=== PATIENT | male | born 1955 | race African-American/Black ===

== ENCOUNTER 2017-07-18 15:07 | Outpatient (CLI) | payer OTHER ==
--- NOTE | 2017-07-18 16:32 | RAD ---
TWO VIEWS OF THE LUMBOSACRAL SPINE: 07/18/17 COMPARISON: None. HISTORY: Followup. Lumbar disc disease status post lumbar surgery. FINDINGS: Two views of the lumbosacral spine shows the patient to be status post posterior fusion of L4 on L5 with left sided pedicle screws. No perihardware lucency is identified. A disc spacer is seen in good position within the disc space. The vertebral bodies demonstrate normal alignment without subluxati on. IMPRESSION: Postsurgical changes of the lumbar spine without evidence of complication. POS: [facility]
== END 2017-07-18 15:08 | disposition home or self-care (01) ==
LOC: TBSIIMAG 15:07
PROVIDERS: ATTEND Physician Assistant
DX: M51.9 Unspecified thoracic, thoracolumbar and lumbosacral intervertebral disc disorder (principal); Z98.1 Arthrodesis status
CPT/HCPCS: 72100

== ENCOUNTER 2020-01-24 18:24 | Inpatient (IN) | payer OTHER ==
[~2020-01-24 18:24] MED LIST: Dexamethasone 20 MG/5 ML VIAL ONE; Glycopyrrolate 0.2 MG/ML 5 ML SYRINGE ONE; Iopamidol-370 76% 500 ML 1 ML ONE; Lidocaine 1% PF 5 ML VIAL ONE; Ondansetron PF 4 MG/2 ML Vial ONE; PROPOFOL 200 MG/20 ML VIAL ONE; Rocuronium Bromide 10 MG/ML (10ML VIAL) ONE; Succinylcholine Chloride 20 MG/ML 10 ml SYRINGE FS ONE
[2020-01-24] MEDS ORDERED: Morphine 4 MG/ML VIAL ONE (18:52)
[2020-01-24] MEDS ORDERED: Ondansetron PF 4 MG/2 ML Vial ONE ×2 (18:52→18:54)
[2020-01-24 19:01] LABS: Hemoglobin 17.1 g/dL (14.0-18.0); Mean Corpuscular HGB CONC 33.2 g/dL (32.0-36.0); Mean Corpuscular Hemoglobin 30.5 pg (27.0-31.0); Mean Corpuscular Volume 91.7 fL (78.0-98.0); Mean Platelet Volume 9.5 fL (7.4-10.4); Platelet Count 243 thou/uL (130-400); RBC Distribution Width 11.9 % (11.5-14.5); Red Blood Cell (RBC) Count 5.61 mill/uL (4.70-6.10); White Blood Cell (WBC) Count 21.6 thou/uL (4.8-10.8)
[2020-01-24 19:06] LABS: PTT 24.4 SEC (22.9-36.1)
--- NOTE | 2020-01-24 19:17 | RAD ---
PORTABLE CHEST: History: Abdominal pain and diarrhea. FINDINGS: Heart size is within normal limits. Mediastinal structures appear unremarkable. Bibasilar atelectatic lung changes are seen. Findings are suspicious for free air under the right hemidiaphragm. CT is rec ommended. IMPRESSION: Findings suspicious for free air under the right hemidiaphragm. CT is recommended for further assessm ent. Findings telephoned to Dr. Georges. POS: [facility]
[2020-01-24 19:23] LABS: ALT (SGPT) 24 U/L (8-55); AST (SGOT) 19 U/L (5-34); Albumin 4.6 g/dL (3.4-4.8); Alkaline Phosphatase 77 U/L (40-110); Anion Gap 19 mmol/L (10-20); BUN (Urea Nitrogen) 11 mg/dL (8.4-25.7); CK (CPK) 163 U/L (30-200); Calc. Creatinine Clearance 0 mL/min (70-130); Carbon Dioxide 29 mmol/L (23-31); Chloride 94 mmol/L (98-107); Estimated GFR-MDRD 79; Globulin 3.5 g/dL (2.4-3.5); Glucose 286 mg/dL (80-115); Lipase 47 U/L (8-78); Protein, Total 8.1 g/dL (5.8-8.1); Sodium 138 mmol/L (136-145)
[2020-01-24 19:26] LABS: Band 19 % (5-11); Lymphocytes 4 % (21-51); MDiff Complete? YES; Metamyelocyte 2 % (0-0); Monocytes 9 % (0-10); Neutrophil 66 % (42-75); Platelet Morphology Comment Appears Adequate; RBC Morphology Normal; Vacuoles SLIGHT
[2020-01-24] MEDS ORDERED: Piperacillin/Tazobactam 4.5 GM VIAL ONE (20:02)
--- NOTE | 2020-01-24 20:16 | CT ---
CT ABDOMEN AND PELVIS PERFORMED WITH CONTRAST ENHANCEMENT: History: Abdominal pain, diarrhea. Free air noted on chest x-ray exam. FINDINGS: The lung bases show subsegmental atelectatic change. The liver shows no focal abnormalities. There is a small amount of air seen within the right lobe of the liver adjacent to a portal vein, not felt to be in the portal vein. It may represent a tiny amoun t of pneumobilia. It is not definitely felt to represent portal venous gas. The spleen is normal in a ppearance. The pancreas region appears unremarkable. The gallbladder is not distended. Free fluid is seen adjacent to the liver. In addition free air is seen along the right hemidiaphragm and anterior t o the liver. It is also anterior to the stomach. There is a somewhat edematous appearing change to po rtions of the wall of the stomach, particularly as progressed towards the antrum region. This free ai r is also adjacent to the transverse colon but I do not see any transverse colon wall thickening or a ny definite diverticular changes that would suggest a perforation related to diverticular disease. No pneumotosis of the colon wall. Abdominal aorta is normal in caliber. There is some minimal fat stran ding within the mesenteric fat. Free fluid is seen within the pelvis. The bladder wall appears slight ly thickened and is under distended, probably on the basis of mildly enlarged prostate. IMPRESSION: 1. Free air and fluid within the abdomen. I believe the most likely course of this is probably relate d to the stomach. Findings were discussed with Dr. Georges. 2. Other findings as noted above. POS: [facility] [place]
[2020-01-24] MEDS ORDERED: Lidocaine 2% Jelly 5 ML TUBE ONE (20:45)
[2020-01-24] MEDS ORDERED: Midazolam HCl 2 mg/2 ml Vial ONE (20:45)
[2020-01-24] MEDS ORDERED: Fentanyl 100 MCG/2 ML VIAL ONE (20:45)
--- NOTE | 2020-01-24 21:06 | HP ---
CHIEF COMPLAINT: Abdominal pain. PRESENT ILLNESS: Mr. Goodman is a 64-year-old man who had been troubled with constipation for several days and today, he had a rather acute onset of primarily upper abdominal pain, which continued to worsen throughout the day. He did not have any nausea or vomiting. He came to the emergency room and evaluation was done which included a CT scan of the abdomen which demonstrated pneumoperitoneum indicating a perforation of the bowel. He has never had any problems such as this in the past. PAST MEDICAL HISTORY: Significant for back surgery, foot surgery, history of sleep apnea with sinus surgery, borderline diabetes mellitus. He had scarlet fever last year. MEDICATIONS: None. ALLERGIES: NONE. FAMILY HISTORY: His father when he was a young child. His mother of colon cancer. SOCIAL HISTORY: He is . He is retired. He still smokes less than a pack cigarettes per day. Seldom consumes any alcoholic beverages. REVIEW OF SYSTEMS: Negative for any pulmonary problems such as asthma. No chest pains or heart trouble. Denies any hypertension. No history of peptic ulcer disease or hepatitis. PHYSICAL EXAMINATION: VITAL SIGNS: BP 160/76, pulse is 125. GENERAL: He is alert and cooperative and appears to be acutely ill. HEAD, EYES, EARS, NOSE, AND THROAT: Show no significant abnormalities. NECK: Without masses or lymphadenopathy. Trachea midline. No jugular venous distention. LUNGS: Clear to auscultation. HEART: Regular rhythm with a tachycardia. ABDOMEN: Distended with a small reducible umbilical hernia. No evidence of inguinal hernia. Bowel sounds are decreased. He has significant abdominal tenderness, more so in the upper abdomen with evidence of rebound tenderness. GENITOURINARY: Normal male genitalia. EXTREMITIES: No cyanosis or edema. Peripheral pulses were present. NEUROLOGIC: Shows no evidence of motor sensory deficit. IMPRESSION: Perforated viscus, etiology undetermined, although Radiology feels that it maybe gastric in location. PLAN: He needs to have a laparotomy. He has been given preoperative antibiotics. The source of the perforation will be located and treated accordingly. If it is a duodenal ulcer, Jeramy patch is most likely, there is no way to know if this could be a diverticular perforation or some other area of bowel perforated. Potential risks include bleeding, infection, injury to other areas of the GI tract or intraabdominal structures, postoperative intraabdominal abscess. Potential need for colostomy was discussed, even though he expressed that he really did not want that sort of procedure. His was present on the telephone during the discussion of the need for operation and the possibilities. I feel that informed consent has been obtained. Plans for urgent operation are being undertaken at the present time. Job ID: [id number]
[2020-01-24] MEDS ORDERED: Promethazine HCl 25 MG/ML VIAL IM PRN ×2 (22:36→22:59)
[2020-01-24] MEDS ORDERED: HYDROmorphone 2 MG/ML VIAL SLOW IVP PRN (22:36)
[2020-01-24] MEDS ORDERED: Promethazine HCl 25 MG/ML VIAL SLOW IVP PRN (22:36)
[2020-01-24] MEDS ORDERED: Ondansetron HCl/PF 4 MG/2 ML Vial IVP PRN (22:36)
[2020-01-24] MEDS ORDERED: HYDROmorphone 0.5 MG/0.5 ML SYRINGE ONE (22:41)
[2020-01-24] MEDS ORDERED: Dextrose 50% Abboject 50 ML SYRINGE SLOW IVP PRN (22:59)
[2020-01-24] MEDS ORDERED: Dextrose 5% in Water 1,000 ML IV PRN (22:59)
[2020-01-24] MEDS ORDERED: hydrALAZINE 20 MG/ML VIAL SLOW IVP PRN (22:59)
[2020-01-24] MEDS ORDERED: Ondansetron PF 4 MG/2 ML Vial IVP PRN (22:59)
--- NOTE | 2020-01-24 23:14 | OP ---
DATE OF PROCEDURE: 01/24/2020 PREOPERATIVE DIAGNOSIS: Perforated abdominal viscus. POSTOPERATIVE DIAGNOSIS: Perforated duodenal ulcer. PROCEDURES PERFORMED: Exploratory laparotomy, Jeramy patch of perforated duodenal ulcer. ANESTHESIA: General anesthesia. FINDINGS: There is a 1 cm circular perforation located at the junction of stomach and duodenum (pylorus). There was a moderate amount of fluid within the peritoneal cavity related to the perforation. DESCRIPTION OF PROCEDURE: The patient was placed in the supine position under general anesthesia. The abdomen was prepped with ChloraPrep and draped in a sterile fashion. The upper midline incision was made. Bleeders were electrocoagulated. The linea alba was sharply incised and the peritoneal cavity was entered. Inflammatory change and considerable amount of grayish reactive fluid were noted in the right upper quadrant of the abdomen, exposing the distal stomach and duodenum. The presence of the perforated duodenal ulcer was visualized. It was elected to close this with a Jeraym patch. Four interrupted 2-0 silk sutures were placed in the site of the perforation and the omentum which was readily available in the right upper quadrant was placed over the perforation and the 2-0 silk sutures were tied to secure the omentum and placed this patch in the duodenal ulcer. The abdomen was copiously irrigated with saline. The nasogastric tube was positioned in the area of the antrum by palpation. The midline fascia was approximated with continuous 0 PDS suture. The skin edges were approximated with a continuous subcuticular suture of 4-0 Monocryl. Dermabond adhesive was placed over the incision. All counts were correct at the conclusion of the procedure. He was taken to recovery room in satisfactory condition. I spoke with his by telephone to inform her of the operative findings and the successful completion of the operative procedure. Job ID: [id number]
[2020-01-25] MEDS: D5 1/2 NS w/20 mEq KCL 1,000 ML IV SCH ×2 (00:52→08:23)
[2020-01-25] MEDS: Insulin Regular 300 UNITS/3 ML VIAL SC PRN ×2 (06:33→11:40)
[2020-01-25] MEDS: Enoxaparin Sodium 40 MG/0.4 ML SYRINGE SC SCH (08:22)
[2020-01-25] MEDS ORDERED: Famotidine/PF 20 mg/2ml Vial SLOW IVP SCH (09:00)
[2020-01-25] MEDS ORDERED: Ondansetron PF 4 MG/2 ML Vial IVP PRN (11:09)
[2020-01-25] MEDS ORDERED: Ondansetron ODT 8 MG TAB SL PRN (11:09)
[2020-01-25] MEDS ORDERED: Dextrose 50% Abboject 50 ML SYRINGE SLOW IVP PRN (11:10)
[2020-01-25] MEDS ORDERED: Dextrose 5% in Water 1,000 ML IV PRN (11:10)
[2020-01-25] MEDS: Piperacillin/Tazobactam 3.375 GM in Sodium Chloride 0.9% 100 ML IVPB SCH ×3 (12:15→23:21)
--- NOTE | 2020-01-25 13:15 | PRG ---
DATE OF SERVICE: 01/25/2020 SUBJECTIVE: Mr. Goodman is doing well after undergoing laparotomy, Jeramy patch for perforated pyloric channel ulcer by Dr. Chun yesterday. His NG tube has put out 100 mL. OBJECTIVE: VITAL SIGNS: Temperature 98.6 degrees, pulse 112, respirations 18, blood pressure 115/77. LUNGS: Clear to auscultation. CARDIAC: Regular rate and rhythm without murmur or gallop. ABDOMEN: Soft, diminished bowel sounds. Wound looks good. EXTREMITIES: Unremarkable. LABORATORY DATA: No labs today. Accu-Cheks elevated. He has dextrose IV fluid. We will change IV fluids. ASSESSMENT AND PLAN: Change IV fluids to diminish glucose, change to moderate sliding scale. Continue NG tube and IV fluids at this time. Check labs in the morning. Hopefully, can remove the NG tube tomorrow and advance him to liquids. Job ID: [id number]
[2020-01-25] MEDS: Fluconazole In NaCl,Iso-Osm 400 MG in Premix Bag 1 BAG IVPB SCH (14:15)
[2020-01-25] MEDS: Lactated Ringer's 1,000 ML IV SCH ×2 (14:21→23:26)
[2020-01-25] MEDS: Morphine 4 MG/ML VIAL SLOW IVP PRN ×2 (15:09→23:20)
[2020-01-25] MEDS: HumaLOG 300 UNITS/3 ML VIAL SC PRN (16:37)
[2020-01-25] MEDS: Pantoprazole 40 MG VIAL IVP SCH (19:47)
[2020-01-26 05:31] LABS: Band 20 % (5-11); Hemoglobin 13.1 g/dL (14.0-18.0); Lymphocytes 7 % (21-51); MDiff Complete? YES; Mean Corpuscular HGB CONC 32.7 g/dL (32.0-36.0); Mean Corpuscular Volume 91.8 fL (78.0-98.0); Mean Platelet Volume 9.4 fL (7.4-10.4); Monocytes 10 % (0-10); Neutrophil 63 % (42-75); Platelet Count 182 thou/uL (130-400); Platelet Morphology Comment Appears Adequate; RBC Distribution Width 11.8 % (11.5-14.5); Red Blood Cell (RBC) Count 4.38 mill/uL (4.70-6.10); White Blood Cell (WBC) Count 21.8 thou/uL (4.8-10.8)
[2020-01-26 05:32] LABS: ALT (SGPT) 15 U/L (8-55); AST (SGOT) 13 U/L (5-34); Albumin 3.2 g/dL (3.4-4.8); Alkaline Phosphatase 59 U/L (40-110); Anion Gap 10 mmol/L (10-20); BUN (Urea Nitrogen) 15 mg/dL (8.4-25.7); Bilirubin, Total 0.9 mg/dL (0.2-1.2); Calc. Creatinine Clearance 79 mL/min (70-130); Calcium 9.1 mg/dL (7.8-10.44); Carbon Dioxide 28 mmol/L (23-31); Chloride 104 mmol/L (98-107); Estimated GFR-MDRD 68; Glucose 151 mg/dL (80-115); Potassium 4.1 mmol/L (3.5-5.1); Protein, Total 6.2 g/dL (5.8-8.1); Sodium 138 mmol/L (136-145)
[2020-01-26] MEDS: Piperacillin/Tazobactam 3.375 GM in Sodium Chloride 0.9% 100 ML IVPB SCH ×3 (06:01→18:35)
[2020-01-26] MEDS: Lactated Ringer's 1,000 ML IV SCH ×3 (06:01→22:31)
[2020-01-26] MEDS: Morphine 4 MG/ML VIAL SLOW IVP PRN ×2 (06:07→11:55)
[2020-01-26] MEDS: Enoxaparin Sodium 40 MG/0.4 ML SYRINGE SC SCH (08:48)
[2020-01-26] MEDS: Pantoprazole 40 MG VIAL IVP SCH ×2 (08:48→20:51)
--- NOTE | 2020-01-26 12:18 | PRG ---
DATE OF SERVICE: 01/26/2020 SUBJECTIVE: Moris Goodman is 2 days postop laparotomy, Jeramy patch, primary closure of perforated pyloric channel ulcer by Dr. Chun. The patient's NG tube "came out." He had very little output from this prior to coming out and it was left out. He was started on liquids. He was told to go very slow. PHYSICAL EXAMINATION: VITAL SIGNS: Temperature 99.2 degrees, heart rate 107, and blood pressure 143/94. LUNGS: Clear to auscultation. CARDIAC: Regular rate and rhythm without murmur or gallop. ABDOMEN: Soft. Occasional bowel sounds. No flatus. No stool. EXTREMITIES: Unremarkable. LABORATORY DATA: White count 21,000 and hemoglobin 13. Basic metabolic profile normal. ASSESSMENT/PLAN: 1. Perforated ulcer. Continue intravenous fluids and antibiotics. Await better GI function. Start liquids, go slow. 2. Diabetes mellitus. Monitor sliding scale. Glucose been discontinued. Job ID: [id number]
[2020-01-26] MEDS: HumaLOG 300 UNITS/3 ML VIAL SC PRN (12:39)
[2020-01-26] MEDS: Fluconazole In NaCl,Iso-Osm 400 MG in Premix Bag 1 BAG IVPB SCH (12:40)
--- NOTE | 2020-01-26 14:20 | PQF ---
CLINICAL DOCUMENTATION IMPROVEMENT CLARIFICATION FORM: ICD-10 Updated PLEASE DO AN ADDENDUM TO THE PROGRESS NOTE WITH ANY DOCUMENTATION UPDATES OR ADDITIONS AND CARRY THROUGH TO DC SUMMARY. THANK YOU. DATE: 01/26/20 ATTN: DR. QUIOÑNES Please exercise your independent, professional judgment in responding to the clarification form. Clinical indicators are provided on the bottom of this form for your review Please check appropriate box(es): [ ] Sepsis present on admission [ yes ] Sepsis NOT present on admission [ ] Unable to determine Due to: Due to: [ ] Device (please specify) [ ] Implant [ ] Graft [ ] Infusion [ yes ] SIRS due to non-infectious process (please specify etiology) [ ] with organ dysfunction [ yes] without organ dysfunction [ ] Severe sepsis present on admission [ yes ] Severe Sepsis NOT present on admission [ ] Unable to determine with acute organ dysfunction of: ____ [ ] Septic Shock present on Admission [ ] Septic Shock NOT present on Admission [ ] Unable to determine [ ] Localized infection without sepsis [ ] Other diagnosis [ ] Unable to determine For continuity of documentation, please document condition throughout progress notes and discharge summary. Thank You. 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 All Rights Reserved JOSELO [email or web address]
[2020-01-27] MEDS: Piperacillin/Tazobactam 3.375 GM in Sodium Chloride 0.9% 100 ML IVPB SCH ×5 (00:10→23:34)
[2020-01-27] MEDS: Ketorolac Tromethamine 30 MG/ML VIAL IVP PRN ×2 (00:10→20:22)
[2020-01-27] MEDS: Lactated Ringer's 1,000 ML IV SCH ×3 (06:19→21:45)
[2020-01-27 06:50] LABS: Band 1 % (5-11); Hemoglobin 12.7 g/dL (14.0-18.0); Hypochromia SLIGHT = 6-15 cells (100X) (0-5/hpf); Lymphocytes 1 % (21-51); MDiff Complete? YES; Mean Corpuscular HGB CONC 35.3 g/dL (32.0-36.0); Mean Corpuscular Hemoglobin 32.7 pg (27.0-31.0); Mean Corpuscular Volume 92.6 fL (78.0-98.0); Mean Platelet Volume 9.3 fL (7.4-10.4); Monocytes 7 % (0-10); Neutrophil 91 % (42-75); Platelet Count 170 thou/uL (130-400); Platelet Morphology Comment Appears Adequate; RBC Distribution Width 11.8 % (11.5-14.5); Red Blood Cell (RBC) Count 3.89 mill/uL (4.70-6.10); White Blood Cell (WBC) Count 22.9 thou/uL (4.8-10.8)
[2020-01-27] MEDS: Pantoprazole 40 MG VIAL IVP SCH ×2 (08:40→20:23)
[2020-01-27] MEDS: Enoxaparin Sodium 40 MG/0.4 ML SYRINGE SC SCH (08:40)
--- NOTE | 2020-01-27 11:14 | PRG ---
DATE OF SERVICE: 01/27/2020 SUBJECTIVE: Moris Goodman is doing well today. He is 3 days postoperative laparotomy, closure of perforated duodenal ulcer pyloric channel with Jeramy patch. He has not passed stool or flatus, but does not have any nausea or vomiting. His white count is still 22,000 and left shift has resolved. His hemoglobin is 12.7. He reports he has pain in his right upper quadrant laterally, slightly improved from yesterday. He is walking. He is doing well from a mobility standpoint. OBJECTIVE: VITAL SIGNS: Temperature 99.1 degrees, pulse 93, blood pressure 137/88. LUNGS: Clear to auscultation. CARDIAC: Regular rate and rhythm without murmur or gallop. ABDOMEN: Soft and nontender. Wound looks good. Mild tenderness in right upper quadrant without rebound. EXTREMITIES: Unremarkable. ASSESSMENT AND PLAN: Persistent leukocytosis after laparotomy, closure of perforated pyloric channel ulcer and Jeramy patch. Continue to observe. Repeat labs tomorrow. If his white count remains elevated, may consider a CAT scan of the abdomen and pelvis tomorrow pending other factors. Continue clear liquids, go slow. Job ID: [id number]
[2020-01-27] MEDS: HumaLOG 300 UNITS/3 ML VIAL SC PRN ×3 (12:24→20:22)
[2020-01-27] MEDS: Fluconazole In NaCl,Iso-Osm 400 MG in Premix Bag 1 BAG IVPB SCH (12:24)
--- NOTE | 2020-01-27 14:03 | EKG ---
Test Reason : Blood Pressure : / mmHG Vent. Rate : 126 BPM Atrial Rate : 126 BPM P-R Int : 142 ms QRS Dur : 076 ms QT Int : 304 ms P-R-T Axes : 020 -35 050 degrees QTc Int : 440 ms Sinus tachycardia Left axis deviation Nonspecific ST abnormality Abnormal ECG Confirmed by TIGIST GILMAN, RANJANA ([id number]), editorial assistant MUNDO COHN ([id number]) on 01/27/2020 2:03:03 PM Referred By: Confirmed By:RANJANA ESCOTO MD
[2020-01-28] MEDS: Lactated Ringer's 1,000 ML IV SCH ×3 (03:01→14:28)
[2020-01-28] MEDS: Piperacillin/Tazobactam 3.375 GM in Sodium Chloride 0.9% 100 ML IVPB SCH ×4 (05:21→23:52)
[2020-01-28 05:46] LABS: #Lymphocytes 1.8 thou/uL (1.20-3.40); #Monocytes 1.8 thou/uL (0.11-0.59); #Neutrophils 11.5 thou/uL (1.40-6.50); %Basophils 0.1 % (0.0-1.0); %Eosinophils 0.2 % (0.0-10.0); %Lymphocytes 11.7 % (21.0-51.0); %Monocytes 11.7 % (0.0-10.0); %Neutrophils 76.4 % (42.0-75.0); Hemoglobin 11.5 g/dL (14.0-18.0); Mean Corpuscular HGB CONC 33.2 g/dL (32.0-36.0); Mean Corpuscular Hemoglobin 30.3 pg (27.0-31.0); Mean Corpuscular Volume 91.2 fL (78.0-98.0); Mean Platelet Volume 9.2 fL (7.4-10.4); Platelet Count 191 thou/uL (130-400); RBC Distribution Width 11.7 % (11.5-14.5); Red Blood Cell (RBC) Count 3.81 mill/uL (4.70-6.10)
[2020-01-28] MEDS: Pantoprazole 40 MG VIAL IVP SCH ×2 (08:29→20:54)
[2020-01-28] MEDS: Enoxaparin Sodium 40 MG/0.4 ML SYRINGE SC SCH (08:29)
[2020-01-28] MEDS: Fluconazole In NaCl,Iso-Osm 400 MG in Premix Bag 1 BAG IVPB SCH (12:20)
[2020-01-28] MEDS: HumaLOG 300 UNITS/3 ML VIAL SC PRN (12:20)
[2020-01-28] MEDS ORDERED: traMADol HCl 50 MG TAB PO PRN ×2 (14:02)
[2020-01-28] MEDS ORDERED: Acetaminophen 500 MG TAB PO PRN (14:03)
--- NOTE | 2020-01-28 14:24 | PRG ---
DATE OF SERVICE: SUBJECTIVE: Moris Goodman is doing well today. His white count is down to 15,000 from 20,000. He has remained afebrile. Temperature 98.3 degrees, pulse 68, blood pressure 146/63. He reports his right abdominal pain has improved. He is walking frequently. He is tolerating his diet. He is passing flatus, but not yet had a bowel movement. As noted above, his white count is 150,00, differential normal, hemoglobin 11.5. He is urinating spontaneously. OBJECTIVE: LUNGS: Clear to auscultation. CARDIAC: Regular rate and rhythm without murmur or gallop. ABDOMEN: Soft, mildly distended, tympanitic. Midline wound looks good. EXTREMITIES: Unremarkable. ASSESSMENT AND PLAN: Recovering GI function. Tolerating liquids. Continue clear liquids today. Decrease IV fluids. Check CBC in the morning. Plan discharge home in 1 to 2 days. Job ID: [id number]
[2020-01-29] MEDS: Piperacillin/Tazobactam 3.375 GM in Sodium Chloride 0.9% 100 ML IVPB SCH ×2 (05:24→11:56)
[2020-01-29] MEDS: Lactated Ringer's 1,000 ML IV SCH (05:25)
[2020-01-29 06:37] LABS: #Lymphocytes 1.7 thou/uL (1.20-3.40); #Neutrophils 9.8 thou/uL (1.40-6.50); %Basophils 0.2 % (0.0-1.0); %Eosinophils 0.3 % (0.0-10.0); %Lymphocytes 12.5 % (21.0-51.0); %Monocytes 14.8 % (0.0-10.0); %Neutrophils 72.2 % (42.0-75.0); Hemoglobin 11.8 g/dL (14.0-18.0); Mean Corpuscular HGB CONC 33.5 g/dL (32.0-36.0); Mean Corpuscular Hemoglobin 30.8 pg (27.0-31.0); Platelet Count 205 thou/uL (130-400); RBC Distribution Width 11.6 % (11.5-14.5); Red Blood Cell (RBC) Count 3.81 mill/uL (4.70-6.10); White Blood Cell (WBC) Count 13.6 thou/uL (4.8-10.8)
[2020-01-29] MEDS: Enoxaparin Sodium 40 MG/0.4 ML SYRINGE SC SCH (10:30)
[2020-01-29] MEDS: Pantoprazole 40 MG VIAL IVP SCH (10:31)
[2020-01-29] MEDS: Fluconazole In NaCl,Iso-Osm 400 MG in Premix Bag 1 BAG IVPB SCH (12:34)
[2020-01-29 12:56] VITALS: BMI 31.6
--- NOTE | 2020-01-29 16:07 | PRG ---
DATE OF SERVICE: 01/29/2020 SUBJECTIVE: Moris Goodman is doing better. He is tolerating his diet. He is passing gas and having bowel movements. He is on full liquids. OBJECTIVE: VITAL SIGNS: Temperature 98.4 degrees, heart rate 78, blood pressure 154/86. LUNGS: Clear to auscultation. CARDIAC: Regular rate and rhythm without murmur or gallop. ABDOMEN: Soft and nontender. Bowel sounds present. Wound looks good. EXTREMITIES: Unremarkable. LABORATORY DATA: White count this morning 13,000, hemoglobin 11.8. Glucose is 114 to 142. Overall, the patient is doing well. I have advised him not to take NSAIDs. He needs to be on a PPI daily, and we will write a prescription for Nexium daily. We will plan to advance his diet to a low-fiber soft diet. He can transition to high-fiber diet over the next few weeks as going slowly taking small bites and chewing well. He can leave his wound open to shower and bathe and wash the wound with soap and water. ASSESSMENT: Status post perforated pyloric channel ulcer. PLAN: Discharge home more likely in the morning. Dr. Schmidt will be seeing him and discharging him home. We will have his discharge instructions ready. Job ID: [id number]
[2020-01-29] MEDS: Amoxicillin/Potassium Clav 500 MG TAB PO SCH (21:18)
[2020-01-30 07:53] VITALS: BP 157/83; TEMP 98.3
[2020-01-30] MEDS: Amoxicillin/Potassium Clav 500 MG TAB PO SCH (08:13)
[2020-01-30] MEDS: Enoxaparin Sodium 40 MG/0.4 ML SYRINGE SC SCH (08:13)
--- NOTE | 2020-02-01 12:32 | DIS ---
DATE OF ADMISSION: 01/24/2020 DATE OF DISCHARGE: 01/30/2020 FINAL DIAGNOSES: 1. Perforated duodenal ulcer. 2. Diet-controlled diabetes. HISTORY: Mr. Goodman is a 64-year-old man who presented to the emergency room with acute onset of severe upper abdominal pain. He was found to have free air on CT and was taken emergently to the operating room by Dr. Chun. He underwent exploratory laparotomy and Jeramy patch repair of duodenal ulcer. Postoperatively, he recovered slowly but unremarkably. His diet was able to be advanced and he tolerated this. Once he was tolerating a diet and had return of bowel function and his pain was managed on oral medications, he was discharged home. He does not have any history of heavy alcohol or NSAID use so stool H pylori testing was recommended. The patient was unable to give a stool sample at the time of discharge, but he was given instructions on how to collect this and told to return a stool sample to the lab before his followup appointment with Dr. Cole. He is to return to Dr. Cole's clinic in 2 weeks' time and to avoid any heavy lifting or NSAIDs. DISCHARGE MEDICATIONS: Include; 1. Tylenol p.r.n. 2. Augmentin 500 mg p.o. q.12 hours. 3. Protonix 40 mg daily. 4. P.r.n. tramadol. 5. He can continue to use Zanaflex as needed and Tylenol No. 3 which are home medications. Job ID: [id number] MTDD
== END 2020-01-30 11:47 | disposition home or self-care (01) | DRG 331 ==
LOC: ERS 18:24 → SDC/OP 21:33 → SURG A 23:55
PROVIDERS: ADMIT Surgery; ATTEND Surgery
PROC: 0DU907Z Supplement Duodenum with Autologous Tissue Substitute, Open Approach (ICD-10-PCS; principal; 2020-01-24)
DX: K26.5 Chronic or unspecified duodenal ulcer with perforation (principal); E11.9 Type 2 diabetes mellitus without complications; F17.210 Nicotine dependence, cigarettes, uncomplicated; Z79.899 Other long term (current) drug therapy
CPT/HCPCS: 36415; 36416; 71045; 74177; 80053; 82550; 83690; 83880; 84484; 85025; 85610; 85730; 86850; 86900; 86901; 93005; 96361; 96365; 96366; 96375; C9113; J1100; J1170; J1450; J1650; J1815; J1885; J2001; J2250; J2270; J2405; J2543; J2704; J3010; J3480; J3490; Q9967; S0028

== ENCOUNTER 2020-11-17 10:36 | Outpatient (CLI) | payer OTHER | END 2020-11-17 10:37 | disposition home or self-care (01) | LOC: BICMRI 10:36 | PROVIDERS: ATTEND Orthopaedic Surgery | DX: M25.511 Pain in right shoulder (principal); S43.401A Unspecified sprain of right shoulder joint, initial encounter; M19.011 Primary osteoarthritis, right shoulder ==